=== PATIENT | female | born 1980 | race Asian ===

== ENCOUNTER 2023-12-09 08:01 | Day surgery (SDC) | payer OTHER ==
[~2023-12-09] VITALS: Ht 152.4 cm; Wt 65.1 kg
[~2023-12-09 08:01] MED LIST: 12 HOUR DECONG120 MG PO; ANUSOL-HC25 MG PR; IBLOOD GLUCOSE TEST STRIP 1 EA TEST VI PRN; LACTATED RINGER'S 1,000 ML IV SCH; LEVOTHYROXINE25 MC1 PO; LIDOCAINE HCL 1% 5 ML SDV INJ ONE; MIDAZOLAM HCL 5 MG/5 ML VIAL IV PRN; MUCINEX600 MG PO; ZYRTEC10 MG PO; fentaNYL citrate 100 MCG/2 ML VIAL IV PRN
--- NOTE | 2023-12-09 08:06 | NUR ---
SHORT VISIT PT ARRIVED. PT STATED NO IMMEDIATE NEEDS. SAMPLER AND TEST PREPARER PROVIDED SUPPORTIVE PRESENCE, HOSPITALITY, PRAYER, FACILIATED INTERACTION WITH THERAPY ANIMAL.
[2023-12-09 08:21] VITALS: BP 120/83
[2023-12-09] MEDS ORDERED: PREPARATION H C26 GM PR (08:21)
[2023-12-09] MEDS ORDERED: fentaNYL citrate 100 MCG/2 ML VIAL ONE ×2 (10:04→10:28)
[2023-12-09] MEDS ORDERED: MIDAZOLAM HCL 5 MG/5 ML VIAL ONE (10:05)
--- NOTE | 2023-12-09 10:55 | NUR ---
12/09/23 Heide5 Bryan Ledezma 1049: PT ARRIVED TO PACU VIA STRETCHER. PT ON RA AND AROUSABLE AT THIS TIME.
[2023-12-09 11:25] VITALS: BP 113/79
--- NOTE | 2023-12-10 07:34 | OR ---
[facility] [place] [facility] [address] [place], [place] [address] Signed DATE OF OPERATION: 12/09/2023 SURGEON: Yamilet Ybarra MD PREOPERATIVE DIAGNOSES: 1. External hemorrhoids. 2. Pain with bowel movements. 3. External anal skin tags. 4. Brother with a history of hemorrhoids and anal fissure. 5. Recent food poisoning with diarrhea. POSTOPERATIVE DIAGNOSES: 1. Minimal external anal skin tags. 2. Hypertensive anal sphincter tone. PROCEDURE: Colonoscopy with cold biopsy of the sigmoid colon, distal rectum. ESTIMATED BLOOD LOSS: None. INDICATIONS: Lexie is a 43-year-old female, originally from [place]. She and her now live locally here in [place], [place]. 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 She reminded me that I helped her with her 's colonoscopy. More recently, they had traveled back to [place] to be with family. She developed food poisoning the day after she ate some food. She said it aggravated her hemorrhoids terribly. While in [place], she received nifedipine cream along with lidocaine cream. She was given Cipro and metronidazole. Thankfully, the diarrhea has resolved. She has been using Anusol cream along with some fiber products. She is also using Preparation-H. She is concerned about hemorrhoid that she can feel. She initially was in a lot of pain. She is now back to having normal bowel movements. She said the pain is mostly during bowel movements at this point. She told me today that pretty much the pain is resolved. She explained that her brother had trouble with hemorrhoids and an anal fissure. He lives in [place]. Otherwise, no family history of colon cancer or polyps. She has never had a previous colonoscopy herself. I gave her a brochure on colonoscopy. We had discussed the nature of the test. There is risk including, but not limited to gas bloating, crampy abdominal pain, bleeding, perforation requiring surgery, and missed diagnosis. We also discussed and reviewed the written instructions for a bowel prep line by line. It is the same bowel prep that her took. She also understands the need for IV Electronically Signed By: YAMILET YBARRA MD 12/10/23 0734 PATIENT NAME: LEXIE DAY OPERATIVE REPORT DATE OF : 82 REPORT #: [id number] PHYSICIAN: YAMILET YBARRA MD PCP: LIAM HAMILTON REPORT IS CONFIDENTIAL AND NOT TO BE RELEASED WITHOUT AUTHORIZATION [facility] [place] [facility] [address] [place], [place] [address] Signed conscious sedation. She understands an adult person has to take her home afterwards. She had expressed understanding and wished to proceed. PROCEDURE IN DETAIL: Lexie was taken into our endoscopy suite and placed in the left lateral decubitus position. She took a total of 10 mg of Versed and 200 mcg fentanyl to cover the case. Even with Versed and fentanyl on board, I could not use my index finger for a standard rectal exam. I had to use my 5th digit. She has a somewhat narrow and very hypertensive anal sphincter complex. There were no masses noted. She did seem to have increased pain in the anterior posterior midline. Again she has several perianal skin tags, the most prominent being in the anterior midline. Even sedated, I could not pull the skin back to any significant degree and visualized an anal fissure. After this, the pediatric colonoscope was introduced and advanced all around into the cecum under direct visualization of the camera. It took extra sedation and some abdominal compression until she was finally relax enough to get the camera directly into the cecum. Her prep was quite excellent. We could easily see the appendiceal orifice and ileocecal valve. The scope was then slowly withdrawn. We taken several pictures throughout for photodocumentation. No pathology throughout the entire colon or rectum. She had a little irritation from the prep in the distal half of the rectum. We went ahead and took a random biopsy of the sigmoid colon and one from the distal rectum. Upon retroflexion of the scope, I really could not see any additional pathology above the anal canal. After this, the gas was suctioned out and the colonoscope removed. Rosalia tolerated the procedure quite well. RECOMMENDATIONS: I will see Lexie back in my office in 7 to 14 days to review her results. She more than likely had irritated hemorrhoids from the food poisoning, possibly an anal fissure. She has done well now with her conservative measures. Yamilet Ybarra MD ALB/MODL /[id number] cc: [id number] Reyna Electronically Signed By: YAMILET YBARRA MD 12/10/23 0734 PATIENT NAME: LEXIE DAY OPERATIVE REPORT DATE OF : 82 REPORT #: [id number] PHYSICIAN: YAMILET YBARRA MD PCP: LIAM HAMILTON REPORT IS CONFIDENTIAL AND NOT TO BE RELEASED WITHOUT AUTHORIZATION [facility] [address] [place], [place] [address] Signed Yamilet Ybarra MD Copies: LIAM HAMILTON ANDREW L MD ~ Electronically Signed By: YAMILET YBARRA MD 12/10/23 0734 PATIENT NAME: LEXIE DAY OPERATIVE REPORT DATE OF : 82 REPORT #: [id number] PHYSICIAN: YAMILET YBARRA MD PCP: LIAM HAMILTON REPORT IS CONFIDENTIAL AND NOT TO BE RELEASED WITHOUT AUTHORIZATION
--- NOTE | 2023-12-11 15:43 | PATH ---
[facility] [address] [facility] [place], [place] [address] Signed SPECIMEN(S): A COLON RANDOM BIOPSY SPECIMEN(S): B RECTUM RANDOM BIOPSY SPECIMEN SOURCE: A. COLON RANDOM BIOPSY B. RECTUM RANDOM BIOPSY CLINICAL HISTORY: Hemorrhoids, anal pain, recent diarrhea/food poisoning, external anal skin tags FINAL PATHOLOGIC DIAGNOSIS: A. Colon, biopsy: - Colonic mucosa with no significant pathologic changes B. Rectum, biopsy: - Colonic mucosa with no significant pathologic changes BRP MICROSCOPIC EXAMINATION: Histologic sections of all submitted blocks are examined by light microscopy. These findings, together with the gross examination, support the pathologic diagnosis. GROSS DESCRIPTION: A. The specimen, labeled and designated "Du, random colon biopsy," is received in formalin and consists of one britt soft tissue fragment, 0.2 cm. Entirely submitted in (A1). B. The specimen, labeled and designated "Day, random rectum biopsy," is received in formalin and consists of one britt soft tissue fragment, 0.2 cm. Entirely submitted in (B1). VB (under the direct supervision of a pathologist) The Gross Description was prepared using a voice recognition system. The report was reviewed for accuracy; however, sound-alike word errors, addition and/or deletions may occur. If there is any question about this report, please contact Client Services. ADDITIONAL NOTES: Immunohistochemical and/or in situ hybridization studies if performed in this case included appropriate positive controls that reacted as expected. This test was developed and its performance characteristics determined by [email or web address]. It has not been cleared or approved by the U.S. Food and Drug Administration. The FDA has determined that PATIENT NAME: JOSSUE DAY PATHOLOGY DATE OF : [birth year] REPORT #: [id number] PHYSICIAN: CASS COATS PCP: LIAM HAMILTON REPORT IS CONFIDENTIAL AND NOT TO BE RELEASED WITHOUT AUTHORIZATION [facility] [address] [place] [id number] Signed such clearance or approval is not necessary. This test is used for clinical purposes. It should not be regarded as investigational or for research. [email or web address] is certified under the Clinical Laboratory Improvement Amendments of 1988 (CLIA) as qualified to perform high complexity clinical laboratory testing. PERFORMING LABORATORY: Technical component was performed by [email or web address], [address] [place] [address] (CLIA# [id number]). Professional interpretation was performed by [facility], [address] [place] [address] (CLIA#: [id number]). Diagnostician: Henrique Benton MD Pathologist Electronically Signed 12/11/2023 Copies: ~ PATIENT NAME: JOSSUE DAY PATHOLOGY DATE OF : 82 REPORT #: [id number] PHYSICIAN: CASS COATS PCP: LIAM HAMILTON REPORT IS CONFIDENTIAL AND NOT TO BE RELEASED WITHOUT AUTHORIZATION
== END 2023-12-09 11:40 | disposition home or self-care (01) ==
LOC: DS 08:01
PROVIDERS: ATTEND Colon & Rectal Surgery
PROC: 0DDP8ZX Extraction of Rectum, Via Natural or Artificial Opening Endoscopic, Diagnostic (ICD-10-PCS; 2023-12-09)
PROC: 0DBN8ZX Excision of Sigmoid Colon, Via Natural or Artificial Opening Endoscopic, Diagnostic (ICD-10-PCS; principal; 2023-12-09 10:15)
DX: K64.4 Residual hemorrhoidal skin tags (principal); K62.89 Other specified diseases of anus and rectum; E03.9 Hypothyroidism, unspecified; G43.109 Migraine with aura, not intractable, without status migrainosus; Z79.890 Hormone replacement therapy; Z79.899 Other long term (current) drug therapy
CPT/HCPCS: 84703; 99153; G0500; J2250; J3010; J7121